=== PATIENT | female | born 1985 | race African-American/Black ===

== ENCOUNTER 2017-05-10 11:17 | Observation (INO) | payer MEDICAID ==
[~2017-05-10] VITALS: Ht 172.7 cm; Wt 97.3 kg
[2017-05-10 12:11] VITALS: BP 109/67
[2017-05-10] MEDS ORDERED: TERBUTALINE 1 MG/ML, 1ML ONE (12:20)
[2017-05-10] MEDS ORDERED: PLEASE ENTER ALLERGIES MC SCH (12:30)
[2017-05-10] MEDS ORDERED: PLEASE ENTER HEIGHT AND WEIGHT MC SCH (12:30)
[2017-05-10] MEDS ORDERED: TERBUTALINE 1 MG/ML, 1ML IV ONE (13:00)
[2017-05-10] MEDS ORDERED: SODIUM CHLORIDE FLUSH 3ML SYRINGE IVF SCH (21:00)
== END 2017-05-10 14:25 | disposition home or self-care (01) ==
LOC: LDOP 11:17 → LDIP 11:24
PROVIDERS: ADMIT Student in an Organized Health Care Education/Training Program; ATTEND Student in an Organized Health Care Education/Training Program
DX: O32.1XX0 Maternal care for breech presentation, not applicable or unspecified (principal); Z3A.38 38 weeks gestation of pregnancy
CPT/HCPCS: 59025; 59412; 96374; G0378; J3105; 99211; G0463

== ENCOUNTER 2017-05-24 04:50 | Inpatient (IN) | payer MEDICAID ==
[~2017-05-24] VITALS: Ht 172.7 cm; Wt 97.3 kg
[2017-05-24] MEDS ORDERED: OXYTOCIN 30U/ 0.9% NaCL 500ML 500 ML IV ONE (04:52)
[2017-05-24] MEDS ORDERED: NEWBORN KIT ONE (04:55)
[2017-05-24] MEDS ORDERED: OXYTOCIN 30U/ 0.9% NaCL 500ML 500 ML ONE (04:55)
[2017-05-24] MEDS ORDERED: LIDOCAINE 1%, 20ML ONE (04:55)
[2017-05-24] MEDS ORDERED: METOCLOPRAMIDE 5 MG/ML, 2ML IVPush PRN (05:00)
[2017-05-24] MEDS ORDERED: FENTANYL PF 100 MCG/2ML IVPush PRN (05:00)
[2017-05-24] MEDS ORDERED: FENTANYL PF 100 MCG/2ML IV PRN (05:00)
[2017-05-24] MEDS ORDERED: ONDANSETRON 2MG/ML, 2ML IVPush PRN (05:00)
[2017-05-24] MEDS ORDERED: SODIUM CITRATE/CITRIC ACID 30 ML UDC PO PRN (05:00)
[2017-05-24] MEDS ORDERED: CALCIUM CARBONATE 500 MG TAB.CHEW PO PRN (05:00)
[2017-05-24] MEDS ORDERED: TERBUTALINE 1 MG/ML, 1ML IVPush PRN (05:00)
[2017-05-24] MEDS ORDERED: VANCOMYCIN PMX 1GM/200ML 200 ML IVPB SCH (05:30)
[2017-05-24] MEDS ORDERED: PLEASE ENTER HEIGHT AND WEIGHT MC SCH (05:30)
[2017-05-24 05:43] LABS: BASOPHILS # (AUTO) 0.04 x10^3/uL (0-0.1); BASOPHILS % (AUTO) 1 % (0-1); EOSINOPHILS # (AUTO) 0.04 x10^3/uL (0-0.4); EOSINOPHILS % (AUTO) 1 % (1-7); LYMPHOCYTES # (AUTO) 2.74 x10^3/uL (1-3.4); LYMPHOCYTES % (AUTO) 40 % (22-44); MD NO; MEAN CORPUSCULAR HEMOGLOBIN 25.9 pg (27.0-34.8); MEAN CORPUSCULAR HGB CONC 32.1 g/dL (32.4-35.8); MEAN CORPUSCULAR VOLUME 80.7 fL (80-100); MEAN PLATELET VOLUME 9.2 fL (7.4-10.4); MONOCYTES # (AUTO) 0.39 x10^3/uL (0.2-0.8); MONOCYTES % (AUTO) 6 % (2-9); NEUTROPHILS # (AUTO) 3.69 x10^3/uL (1.8-6.8); NEUTROPHILS % (AUTO) 54 % (42-75); PLATELET COUNT 291 x10^3/uL (130-400); RED BLOOD COUNT 4.51 x10^6/uL (3.82-5.3); RED CELL DISTRIBUTION WIDTH 14.9 % (9.6-15.2)
[2017-05-24] MEDS: LACTATED RINGERS 1,000 ML IV SCH ×4 (05:48→14:32)
[2017-05-24] MEDS ORDERED: FENTANYL/BUPIV./NS/PF 250 ML EPIDCONT ONE (05:55)
[2017-05-24] MEDS ORDERED: LIDOCAINE-MPF 2% ,5ML ONE (05:55)
[2017-05-24] MEDS ORDERED: BUPIVACAINE 0.25% ONE ×2 (05:57)
[2017-05-24 06:24] VITALS: BP_SYST 111; BP_DIAS 65; BP_DIAS 68
[2017-05-24] MEDS ORDERED: FENTANYL/BUPIV./NS/PF 250 ML EPIDCONT SCH (06:32)
[2017-05-24] MEDS ORDERED: LACTATED RINGERS 1,000 ML IVBOLUS PRN (07:00)
[2017-05-24] MEDS ORDERED: NALOXONE 0.4 MG/ML, 1ML IVPush PRN (07:00)
[2017-05-24] MEDS ORDERED: EPHEDRINE 50 MG/ML, 1ML IVPush PRN (07:00)
[2017-05-24 07:46] LABS: AMPHETAMINE SCREEN, URINE Negative (Negative); BARBITURATE SCREEN, URINE Negative (Negative); BENZODIAZEPINE SCREEN, URINE Negative (Negative); CANNABINOID SCREEN, URINE Negative (Negative); COCAINE SCREEN, URINE Negative (Negative); METHADONE SCREEN, URINE Negative (Negative); OPIATE SCREEN, URINE Negative (Negative)
[2017-05-24] MEDS: D5%-LACTATED RINGERS 1,000 ML IV SCH ×2 (08:57→12:52)
[2017-05-24] MEDS ORDERED: OXYTOCIN 30U/ 0.9% NaCL 500ML 500 ML IV PRN (10:30)
[2017-05-24] MEDS: OXYTOCIN 30U/ 0.9% NaCL 500ML 500 ML IV SCH ×2 (13:59→23:59)
[2017-05-24] MEDS ORDERED: METOCLOPRAMIDE 5 MG/ML, 2ML IV PRN (14:00)
[2017-05-24] MEDS ORDERED: ACETAMINOPHEN 325 MG TABLET PO PRN (14:00)
[2017-05-24] MEDS ORDERED: BISACODYL 10 MG SUPP PR PRN (14:00)
[2017-05-24] MEDS ORDERED: ONDANSETRON 2MG/ML, 2ML IV PRN (14:00)
[2017-05-24] MEDS ORDERED: CARBOPROST TROMETHAMINE 250 MCG/ML, 1ML IM PRN (14:00)
[2017-05-24] MEDS ORDERED: GLYCERIN ADULT SUPP PR PRN (14:00)
[2017-05-24] MEDS ORDERED: METHYLERGONOVINE 0.2 MG/ML IM PRN (14:00)
[2017-05-24] MEDS ORDERED: MISOPROSTOL 200 MCG TABLET PR PRN (14:00)
[2017-05-24] MEDS ORDERED: OXYcodone/APAP 5/325MG TABLET PO PRN ×2 (14:00)
[2017-05-24] MEDS ORDERED: IBUPROFEN 800 MG TABLET PO PRN (14:00)
[2017-05-24] MEDS ORDERED: IBUPROFEN 600 MG TABLET ONE (14:48)
[2017-05-24] MEDS: IBUPROFEN 600 MG TABLET PO PRN (15:02)
[2017-05-24 16:45] VITALS: BP 105/67
[2017-05-24 19:25] VITALS: BP 104/69
[2017-05-25 00:25] VITALS: BP 109/67
[2017-05-25] MEDS: IBUPROFEN 600 MG TABLET PO PRN (04:21)
[2017-05-25 04:22] VITALS: BP 103/67
[2017-05-25 08:50] VITALS: BP 108/74
[2017-05-25] MEDS: DOCUSATE 100 MG CAPSULE PO PRN ×2 (08:53→21:41)
[2017-05-25] MEDS: PRENATAL VIT/IRON/FA 1 EACH TABLET PO SCH (09:00)
[2017-05-25] MEDS: OXYTOCIN 30U/ 0.9% NaCL 500ML 500 ML IV SCH ×2 (09:59→19:59)
[2017-05-25 20:00] VITALS: BP 116/70
[2017-05-26] MEDS: IBUPROFEN 600 MG TABLET PO PRN (01:26)
[2017-05-26] MEDS: OXYTOCIN 30U/ 0.9% NaCL 500ML 500 ML IV SCH (05:59)
[2017-05-26 08:30] VITALS: BP 114/72
[2017-05-26] MEDS: DOCUSATE 100 MG CAPSULE PO PRN (08:37)
[2017-05-26] MEDS: PRENATAL VIT/IRON/FA 1 EACH TABLET PO SCH (09:00)
[2017-05-26] MEDS ORDERED: IBUP-1223 PO (09:46)
== END 2017-05-26 12:37 | disposition home or self-care (01) | DRG 775 ==
LOC: LDIP 04:50 → 2NW 16:05
PROVIDERS: ADMIT Student in an Organized Health Care Education/Training Program; ATTEND Student in an Organized Health Care Education/Training Program
PROC: 10E0XZZ Delivery of Products of Conception, External Approach (ICD-10-PCS; principal; 2017-05-24)
PROC: 3E0R3BZ Introduction of Anesthetic Agent into Spinal Canal, Percutaneous Approach (ICD-10-PCS; 2017-05-24)
PROC: 00HU33Z Insertion of Infusion Device into Spinal Canal, Percutaneous Approach (ICD-10-PCS; 2017-05-24)
DX: O32.9XX0 Maternal care for malpresentation of fetus, unspecified, not applicable or unspecified (principal); O99.824 Streptococcus B carrier state complicating childbirth; Z37.0 Single live birth; Z3A.38 38 weeks gestation of pregnancy; Z3A.40 40 weeks gestation of pregnancy; Z88.0 Allergy status to penicillin; Z90.49 Acquired absence of other specified parts of digestive tract
CPT/HCPCS: 36415; 80307; 82962; 85025; 86850; 86900; 87806; J3370; J3490; G0475; J2590; J3010; J7120; J7121